=== PATIENT | female | born 1960 | race Caucasian/White ===

== ENCOUNTER → 2016-12-31 | Outpatient (CLI) | payer MEDICARE ==
[~2016-12-31] MED LIST: AMBIEN5 MG PO; COLACE100 MG PO; DESYREL50 MG PO; FLEXERIL10 MG PO; IMITREX100 MG PO; LEVOTHROID (S125 MCG PO; NASONEX NASAL S17 GM NS; NEURONTIN100 MG PO; NORCO 5-325 MG1 TAB PO; NORCO 7.5-3251 EACH PO; PRAVACHOL40 MG PO; PREMPRO 0.3 MG1 EACH PO; PRILOSEC40 MG PO; SYMBICORT 80-10.2 GM INH; TENORMIN50 MG PO; TOPAMAX25 M2 PO; TOPAMAX25 MG PO; VALIUM5 MG PO; XARELTO10 MG PO; ZESTORETIC 20-1 EACH PO
== END ==
LOC: LGSMG 14:19
DX: R60.9 Edema, unspecified (principal); I12.9 Hypertensive chronic kidney disease with stage 1 through stage 4 chronic kidney disease, or unspecified chronic kidney disease; N18.4 Chronic kidney disease, stage 4 (severe)